=== PATIENT | male | born 2000 | race Caucasian/White ===

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

== ENCOUNTER 2023-07-24 15:34 | Emergency (ER) | payer OTHER ==
[2023-07-24 15:40] VITALS: BP 119/74; PULSE 103; RESP 18; TEMP 99.3
[2023-07-24] MEDS ORDERED: IBUPROFEN 600 MG TABLET (FP) PO ONE (17:33)
[2023-07-24] MEDS ORDERED: CYCLOBENZAPRINE HCL 10 MG TABLET (FP) ONE (17:33)
[2023-07-24] MEDS: CYCLOBENZAPRINE HCL 10 MG TABLET (FP) PO ONE (17:39)
[2023-07-24] MEDS: IBUPROFEN 600 MG TABLET (FP) PO ONE (17:39)
== END 2023-07-24 18:18 | disposition home or self-care (01) ==
LOC: JERFT 15:34
DX: M25.561 Pain in right knee (principal); M54.50 Low back pain, unspecified; V49.00XA Driver injured in collision with unspecified motor vehicles in nontraffic accident, initial encounter; Y93.I9 Activity, other involving external motion; Y92.410 Unspecified street and highway as the place of occurrence of the external cause
CPT/HCPCS: 72100-TC-FY; 73560-TC-RT-FY; 99283-25